=== PATIENT | male | born 1945 | race Hispanic/Latino ===

== ENCOUNTER 2023-01-11 11:48 | Emergency (ER) | payer MEDICARE ==
[~2023-01-11] VITALS: Ht 175.3 cm; Wt 68.0 kg
[2023-01-11] MEDS ORDERED: SOLU-MEDROL 125MG VIAL ONE (12:10)
[2023-01-11] MEDS ORDERED: FAMOTIDINE 20MG VIAL IV ONE ×2 (12:10→12:30)
[2023-01-11] MEDS ORDERED: 0.9%NACL 1000ML 1,000 ML IV SCH (12:30)
[2023-01-11] MEDS ORDERED: SOLU-MEDROL 125MG VIAL IVP ONE (12:30)
[2023-01-11] MEDS ORDERED: ONDANSETRON 4MG INJ IVP ONE (12:30)
[2023-01-11] MEDS ORDERED: FAMO40TA7 PO (13:49)
[2023-01-11] MEDS ORDERED: PRED50TA2 PO (13:49)
[2023-01-11] MEDS ORDERED: CETI10TA87 PO (13:49)
[2023-01-11 13:58] VITALS: BP 137/78
== END 2023-01-11 14:07 | disposition home or self-care (01) ==
LOC: EDBD 11:48 → EDH 11:48
DX: T78.40XA Allergy, unspecified, initial encounter (principal); T63.441A Toxic effect of venom of bees, accidental (unintentional), initial encounter; I10 Essential (primary) hypertension; Y92.89 Other specified places as the place of occurrence of the external cause
CPT/HCPCS: 99284; 96374; 96361; 96375; J3490; J7030; J2930; J2405